=== PATIENT | female | born 1975 | race African-American/Black ===

== ENCOUNTER 2019-10-31 20:45 | Emergency (ER) | payer MEDICAID, OTHER ==
[~2019-10-31] VITALS: Ht 165.1 cm; Wt 90.7 kg
--- NOTE | 2019-10-31 20:48 | NUR ---
LISA 89 FROM HOME FOR OVERDOSE ON RESTORIL & AMBIEN UNKNOWN DOSE PT APPEARS SROWSY BUT RESPONSIVE. PT TO BED 11, PLACECD ON MONITOR, VSS, NAD NOTED, PENDING MD BUSH
--- NOTE | 2019-10-31 21:00 | NUR ---
[employer] OFFICER HERE TO INTERVIEW PT. PT DROWSY AT THIS TIME. UNABLE TO ANSWER QUESTIONS.
--- NOTE | 2019-10-31 21:34 | NUR ---
CALLED AND GAVE REPORT TO POISON CONTROL. INSTRUCTIONS WERE TO ORDER OUR STANDARD LABS AND TYLENOL. WATCH PT FOR MINIMUM OF 6 HOURS. TREAT SYMPTOMS OF SEDATIVES SUCH RESP DEPRESSION AND MENTAL STATUS. IF AT 5-6 HOURS SYMPTOMS STILL PERSIST, CONSIDER MONITORING PT LONGER.
--- NOTE | 2019-10-31 21:36 | NUR ---
PA MADE AWARE OF POISON CONTROL ORDERS.
[2019-10-31 21:39] LABS: BASOPHILS # (AUTO) 0.1 /CMM (0.0-0.2); EOSINOPHILS % (AUTO) 6.7 % (0.0-6.0); HEMATOCRIT 36 % (33-45); HEMOGLOBIN 12.3 g/dL (11.5-14.8); LYMPHOCYTES # (AUTO) 2.4 /CMM (0.8-4.8); LYMPHOCYTES % (AUTO) 36.3 % (20.0-44.0); MEAN CORPUSCULAR HGB CONC 34 g/dl (31.0-36.0); MEAN CORPUSCULAR VOLUME 85 fL (82-100); MONOCYTES # (AUTO) 0.3 /CMM (0.1-1.30); MONOCYTES % (AUTO) 4.1 % (2.0-12.0); NEUTROPHILS # (AUTO) 3.5 /CMM (1.8-8.9); NEUTROPHILS % (AUTO) 51.9 % (43.0-81.0); PLATELET COUNT (AUTO) 264 /CMM (150-450); RED BLOOD CELL COUNT(AUTO) 4.28 MIL/uL (4.0-5.2); WHITE BLOOD COUNT (AUTO) 6.7 K/uL (4.3-11.0)
[2019-10-31 21:57] LABS: ALANINE AMINOTRANSFERASE 22 U/L (12-78); ALBUMIN 3.8 g/dL (3.4-5.0); ALCOHOL, BLOOD < 3 mg/dL (0-0); ALKALINE PHOSPHATASE 50 U/L (46-116); ASPARTATE AMINOTRANSFERASE 16 U/L (15-37); BILIRUBIN,DIRECT 0.1 mg/dL (0.0-0.2); BILIRUBIN,TOTAL 0.3 mg/dL (0.2-1.0); CALCIUM, SERUM 8.8 mg/dL (8.5-10.1); CARBON DIOXIDE 29 mmol/L (21-32); CHLORIDE 103 mmol/L (98-107); CREATININE 0.9 mg/dL (0.6-1.3); GLUCOSE 104 mg/dL (74-106); POTASSIUM 3.7 mmol/L (3.5-5.1); SALICYLATE 1.8 mg/dL (2.8-20.0); SODIUM SERUM 139 mmol/L (136-145); TOTAL PROTEIN, SERUM 7.1 g/dL (6.4-8.2); UREA NITROGEN, BLOOD 10 mg/dL (7-18)
[2019-10-31 21:58] LABS: ACETAMINOPHEN < 2 ug/ml (10-30)
[2019-10-31 22:11] LABS: APPEARANCE,URINE Clear (CLEAR); BILIRUBIN,URINE Negative (NEGATIVE); BLOOD, URINE Negative Ery/uL (NEGATIVE); COLOR,URINE Yellow (YELLOW); KETONES,URINE Negative (NEGATIVE); LEUKOCYTE ESTERASE ,URINE Negative (NEGATIVE); NITRITE, URINE Negative (NEGATIVE); PH,URINE 5.5 (5.0-8.0); PROTEIN,URINE Negative (NEGATIVE); UGLUCOSE Negative (NEGATIVE); UROBILINOGEN,URINE 0.2 EU/dL (0.2)
--- NOTE | 2019-10-31 23:21 | NUR ---
SPOKE TO MARCUS IN PERSON ABOUT PT STATUS. WILLING TO MOBILE DEVICE DEVELOPER PT IF PT IS DISCHARGED LATER TONIGHT. CONTACT INFO IN PT DATA
--- NOTE | 2019-10-31 23:26 | NUR ---
SPOKE TO DON FROM POISON CONTROL REGARDING PT STATUS. GAVE INFO ON LABS AND VITALS. POISON CONTROL ADVISES TO CONTINUE MONITORING AND THAT ALL LABS AND VITALS ARE NORMAL.
--- NOTE | 2019-11-01 00:23 | NUR ---
Patient is resting comfortably in bed with eyes closed. Easily aroused. VSS
[2019-11-01] MEDS ORDERED: IV NS 0.9% 1,000 ML BAG IV ONE (01:00)
--- NOTE | 2019-11-01 05:30 | NUR ---
[facility] crisis team here, unable to eval pt at this time
--- NOTE | 2019-11-01 06:00 | NUR ---
pt awake, requested to go bathroom; pt still drowsy, bedpan offered
--- NOTE | 2019-11-01 07:16 | NUR ---
REPORT RECEIVED FROM ALIS YOO FOR FILIBERTO. PATIENT IN BED ASLEEP, EASILY AROUSABLE BY VOICE. HOOKED TO MONITOR, SITTER AT BEDSIDE. WILL CONTINUE TO MONITOR ACCORDINGLY.
--- NOTE | 2019-11-01 08:22 | NUR ---
PATIENT AWAKE, OFFERED FOOD TRAY. REFUSED.
--- NOTE | 2019-11-01 10:19 | NUR ---
PATIENT IN BED ASLEEP, EASILY AROUSABLE BY VOICE. HOOKED TO MONITOR, SITTER AT BEDSIDE. WILL CONTINUE TO MONITOR ACCORDINGLY.
--- NOTE | 2019-11-01 12:04 | NUR ---
PATIENT IN BED ASLEEP, EASILY AROUSABLE BY VOICE. HOOKED TO MONITOR, SITTER AT BEDSIDE. WILL CONTINUE TO MONITOR ACCORDINGLY.
--- NOTE | 2019-11-01 13:16 | NUR ---
ENDORSEMENT GIVEN TO NELL COLINDRES RN FOR FILIBERTO
--- NOTE | 2019-11-01 15:14 | NUR ---
Patient is resting comfortably in bed with eyes closed. Easily aroused. VSS
--- NOTE | 2019-11-01 17:06 | NUR ---
CALLED ARACELI YOO CRISIS ASSISTANT CORPORATE SECRETARY FOR PSYCH CONSULT.
--- NOTE | 2019-11-01 18:30 | NUR ---
ARACELI RN @ BS FOR
--- NOTE | 2019-11-01 19:15 | NUR ---
IV removed. Catheter intact and site benign. Pressure and 4x4 applied to site. No bleeding noted.
--- NOTE | 2019-11-01 19:40 | NUR ---
AWAITING PT TO INSPECTOR SOLDERING PATIENT.
--- NOTE | 2019-11-01 20:33 | NUR ---
Patient discharged to home in stable condition. Written and verbal after care instructions given. Patient verbalizes understanding of instruction. Pt wheeled to waiting room where picked her up. VSS. Ambulatory with steady gait.
[2019-11-01 20:38] VITALS: BP 129/86
== END 2019-11-01 20:39 | disposition home or self-care (01) ==
LOC: ER 20:46
DX: T42.4X1A Poisoning by benzodiazepines, accidental (unintentional), initial encounter (principal); F32.9 Major depressive disorder, single episode, unspecified; R41.82 Altered mental status, unspecified; R94.31 Abnormal electrocardiogram [ECG] [EKG]; Z98.890 Other specified postprocedural states; Y92.89 Other specified places as the place of occurrence of the external cause
CPT/HCPCS: 36415; 70450; 80048; 80076; 80305; 80307; 80329; 81001; 84703; 85025; 93005; 96360; 99285; G0480; J7030; 81000-TC

== ENCOUNTER 2020-12-10 21:51 | Emergency (ER) | payer SELFPAY ==
[~2020-12-10] VITALS: Ht 165.1 cm; Wt 86.2 kg
--- NOTE | 2020-12-10 22:00 | NUR ---
BIB SELF C/O SOB AND CHEST PAIN 1HR MANAGER GOLF, HAS BILAT ARM TINGLING. STATES SHE SMOKED BUT NOT CIGARETTE AND ETOH PT IS AA/O X 4 NO SOB NOTED AMBULATORY WITH ASSISTANCE DUE TO DIZZINESS, HOOKED TO PULSE OX AN MONITOR WILL CONT TO MONITOR
--- NOTE | 2020-12-10 23:01 | NUR ---
LAB AT BEDSIDE BLOOD DRAW DONE
[2020-12-10 23:08] LABS: BASOPHILS # (AUTO) 0.1 K/uL (0.0-0.2); BASOPHILS % (AUTO) 1.1 % (0.0-2.0); EOSINOPHILS % (AUTO) 8.1 % (0.0-6.0); HEMATOCRIT 39 % (33-45); HEMOGLOBIN 13.3 g/dL (11.5-14.8); LYMPHOCYTES # (AUTO) 1.8 K/uL (0.8-4.8); LYMPHOCYTES % (AUTO) 26.2 % (20.0-44.0); MEAN CORPUSCULAR HGB CONC 34 g/dl (31.0-36.0); MEAN CORPUSCULAR VOLUME 84 fL (82-100); MONOCYTES # (AUTO) 0.3 K/uL (0.1-1.30); NEUTROPHILS % (AUTO) 59.6 % (43.0-81.0); PLATELET COUNT (AUTO) 297 K/uL (150-450); RED BLOOD CELL COUNT(AUTO) 4.66 MIL/uL (4.0-5.2); WHITE BLOOD COUNT (AUTO) 6.7 K/uL (4.3-11.0)
[2020-12-10 23:14] LABS: CARBON DIOXIDE 27 mmol/L (21-32); CHLORIDE 104 mmol/L (98-107); CREATININE 1.2 mg/dL (0.6-1.3); GLUCOSE 118 mg/dL (74-106); POTASSIUM 3.8 mmol/L (3.5-5.1); SODIUM SERUM 140 mmol/L (136-145); UREA NITROGEN, BLOOD 10 mg/dL (7-18)
[2020-12-10] MEDS ORDERED: IV NS 0.9% 250 ML IV ONE (23:31)
[2020-12-10] MEDS ORDERED: IOHEXOL-350 100 ML VIAL IV ONE (23:31)
--- NOTE | 2020-12-10 23:44 | NUR ---
TAKEN TO CT
--- NOTE | 2020-12-11 00:31 | NUR ---
BACK FROM CT
--- NOTE | 2020-12-11 01:57 | NUR ---
Patient discharged to home in stable condition. Written and verbal after care instructions given. Patient verbalizes understanding of instruction.IV removed. Catheter intact and site benign. Pressure and 4x4 applied to site. No bleeding noted.Ms Andrade is ambulatory with a steady gait
[2020-12-11 01:58] VITALS: BP 155/98
== END 2020-12-11 01:58 | disposition home or self-care (01) ==
LOC: ER 21:51
DX: R07.89 Other chest pain (principal); R00.2 Palpitations; R00.0 Tachycardia, unspecified; E11.9 Type 2 diabetes mellitus without complications; F32.9 Major depressive disorder, single episode, unspecified; Z90.710 Acquired absence of both cervix and uterus
CPT/HCPCS: 36415 ×2; 71045; 71275; 80048; 84484 ×2; 85025; 93005; 99285; J7050; Q9967